=== PATIENT | male | born 1965 | race Two or more races ===

== ENCOUNTER → 2018-12-14 | Outpatient (CLI) | payer OTHER ==
--- NOTE | 2018-12-14 10:33 | CONS ---
Assessment/Plan Assessment/Plan Hospital Course (Demo Recall) Is a 53-year-old male who presents with right knee pain for 5 to 6 months. Has a history of rheumatoid arthritis and diabetes mellitus. Patient has mild to moderate arthritis of the knee. He may also have a Staley's cyst. I did have a long discussion with the patient that it is not recommended to drain a Staley's cyst as there is significant risk to neurovascular injury and the cyst will most certainly return. I am recommending continued conservative treatment of right knee rheumatoid arthritis. I am recommending aspiration of the knee joint with injection of the steroid as well as physical therapy. 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 Plan: Right knee aspiration and steroid injection Physical therapy Ice Weight loss Low impact activity Follow-up 12 weeks Assessment/Plan (Daily) Right knee aspiration procedure: Risks and benefits aspiration reviewed with patient. The risks include infection, failure, pain, swelling, nerve/tendon/ligament damage. The patient verbalized understanding and verbal consent was obtained prior to procedure. The right knee was prepped in a sterile fashion with alcohol and betadine the site of aspiration was confirmed. Lateral approach was used. The skin and capsule was anesthetized with 3mL 1% lidocaine careful not to inject intra- articularly. The right knee was aspirated. 30 mL of blood-tinged synovial fluid was aspirated. The right knee was injected with 2mL 1% lidocaine, 2mL 0.25% bupivacaine, 40mg Depo-Medrol. Injection flowed freely. Good hemostasis was achieved and no complications noted. The patient tolerated the procedure well. Limit activity and ice for 24-48 hours Consultation Date/Type/Reason Admit Date/Time Date of Consultation: December 14, 2018 Reason for Consultation Right knee pain Date/Time of Note DATE: 12/14/18 TIME: 10:32 Hx of Present Illness This is a 53-year-old male with a chief complaint of right knee pain. The pain began approximately 6 months ago. He has past medical history significant for rheumatoid arthritis and diabetes mellitus. He is on methotrexate and sulfasalazine. The patients pain is in the posterior and lateral aspect of the right knee. Pain is not radiating to the lower leg. The pain is rated as a 9/10. Patient denies complaints of numbness or tingling. The pain is exacerbated by climbing stairs and ambulation. Pain is not relieved by NSAID's. Patient has been taking sulindac on a p.r.n. basis as well as using ice. Of note the patient does take gabapentin for mild peripheral neuropathy. Duration: 5 to 6 months Injury: No Walking tolerance: 1 block Limp: No Support: No Swelling: Yes Crepitation: No Instability: No Stairs: Uses banister Physical Therapy: No Injections: No NSAIDs: Sulindac Prior surgery: No Back pain: No Hip pain: No Risk of AVN : Yes Patient denies fever, chills, shortness of breath, chest pain, nausea/vomiting, constipation, diarrhea. Does have numbness and tingling in both feet. Past Medical History Rheumatoid arthritis Diabetes Hypertension Past Surgical History Past Surgical Hx: no surgical history Family History Significant Family History: no pertinent family hx Social History Alcohol Use: none Smoking Status: Never smoker Drug Use: none Exam/Review of Systems Exam Vitals Weight: 233 pounds Height: 5 foot 6 inches BMI: 37.6 Temperature: 98.2 Heart Rate: 74 Blood Pressure: 152/73 Respiratory Rate: 16 Exam General: Alert, oriented x3. No Acute Distress. Heart: Regular rate and rhythm. Lungs: No respiratory distress. No accessory muscle use. Musculoskeletal: Right Knee This is a well developed male who is alert, oriented times three and in no apparent distress. Skin is intact over the right knee as well as the lower extremity with no abrasions, lacerations, or ulcerations. Observation of the patient's gait reveals an antalgic gait with No thrust. Frontal plane alignment is neutral. There is pain on palpation of lateral joint line and directly posterior. There is a 2+ effusion. The patient demonstrates no grinding anteriorly with ROM. Range of motion: 0 extension to approximately 130 degrees of flexion. Collateral ligament testing reveals no instability with varus or valgus stress at 0 and 30 degrees of flexion. Negative Elisa's and negative posterior drawer. Neurovascularly intact with 5/5 EHL/tibialis anterior/gastroc. Sensation intact to light touch in a sural, saphenous, deep peroneal, superficial peroneal, medial and lateral plantar nerve distribution. Palpable, symmetric dorsalis pedis and posterior tibial pulses in both lower extremities. Hip examination normal. Imaging Imaging The patient received a standard set of films today that were personally reviewed. Imaging included a standing bilateral knee AP, PA flexion, merchant views and a dedicated lateral of the affected knee: There is slight varus alignment of the knee. There is mildmoderate loss of joint space medial and lateral compartment(s). There is osteophyte formation. There is subchondral sclerosis. There are no subchondral cysts. Degenerative changes are most severe in the medial compartment(s) TYRONE CASTREJON MD December 14, 2018 10:33
--- NOTE | 2018-12-15 08:22 | RADRPT ---
PROCEDURE: XR knees CLINICAL INDICATION: Knee pain TECHNIQUE: Four views of the bilateral knees were obtained. COMPARISON: No prior exam FINDINGS: There is no acute fracture dislocation. The bone mineralization is decreased. There are moderate tric ompartmental degenerative changes of the right knee and mild to moderate tricompartmental degenerativ e changes of the left knee. There is a small right knee joint effusion. No left knee joint effusion i s seen. IMPRESSION: 1. Moderate tricompartmental degenerative changes of the right knee and mild to moderate tricompartm ental degenerative changes of the left knee. RPTAT: [facility] Physician Maria Isabel Date Time Electronically viewed and signed by Bobby Rowe Physician on 12/15/2018 08:21 /
== END | disposition home or self-care (01) ==
LOC: HKI 10:08
PROVIDERS: ATTEND Orthopaedic Surgery Adult Reconstructive Orthopaedic Surgery
DX: M25.561 Pain in right knee (principal); M06.9 Rheumatoid arthritis, unspecified; E11.9 Type 2 diabetes mellitus without complications
CPT/HCPCS: 20610; 73564; Z7500; Z7610; G0463